=== PATIENT | female | born 1940 | race Caucasian/White ===

== ENCOUNTER 2016-11-30 08:01 | Outpatient (CLI) | payer OTHER ==
--- NOTE | 2016-11-30 11:15 | DIAGNOSTIC IMAGING REPORT ---
PROCEDURE: US KIDNEY/RENAL COMPLETE INDICATION: CYST OF KIDNEY TECHNIQUE: Mason scale and color Doppler sonographic imaging of the kidneys and urinary bladder was obtained. Intrarenal resistive indices were calculated when appropriate. COMPARISON: 02/28/2014 FINDINGS: The right kidney measures 9.2 x 5.2 x 3.5 cm. Slight cortical thinning but normal cortical echogenicity. There are two small cortical cysts in the kidney, one in the upper pole measuring 14 mm and the other in the mid pole measuring 9 mm. The echols are thin and avascular. No suspicious solid mass. Normal color Doppler blood flow throughout the kidney. Resistive indices in the intrarenal parenchymal arteries range from 0.62-0.68. The left kidney measures 9.3 x 4.3 x 4.5 cm. Slight cortical thinning but normal cortical echogenicity. No hydronephrosis, cyst, solid mass, or shadowing calculus. Normal color Doppler blood flow throughout the kidney. Resistive indices in the intrarenal parenchymal arteries range from 0.64-0.71 The filled urinary bladder has a volume of 33 ml. The patient could not void voluntarily. The urinary bladder wall is uniform in thickness without suspicious thickening or irregularity. No bladder debris, calcification or mass. Bilateral ureteral jets were visible indicating ureteral patency. IMPRESSION: 1. Two small simple cysts in the right renal cortex, developed since the prior ultrasound. Appearance is benign. 2. Normal urinary bladder morphology.
== END 2016-11-30 23:00 ==
LOC: US SRH 08:01
DX: N28.1 Cyst of kidney, acquired (principal)

== ENCOUNTER 2017-01-13 11:20 | Outpatient (CLI) | payer OTHER ==
--- NOTE | 2017-01-14 11:52 | DIAGNOSTIC IMAGING REPORT ---
PROCEDURE: MG BILATERAL SCREENING W/CAD INDICATION: SCREENING TECHNIQUE: Bilateral CC and MLO digital views. COMPARISON: Mammograms 01/13/2016, 10/02/2014 and 07/27/2013. FINDINGS: Computer-aided detection applied. Mildly dense pattern. Small focal asymmetry in the mid lateral aspect of the left breast seen only on the CC view. No pleomorphic microcalcifications. IMPRESSION: 1. Small focal asymmetry mid lateral aspect of the left breast seen only on the CC view, probably normal breast parenchyma. Recommend additional views and ultrasound for clarification. RESULT CODE: 0- Incomplete; needs additional evaluation. A. A negative report should not delay biopsy if a dominant or clinically suspicious mass is present. 10-15% of cancers are not identified by x-ray. B. A negative report may reinforce clinical impression. C. Adenosis and dense breasts may obscure an underlying neoplasm. D. False positive reports average 6-10%. E.. A yearly screening mammogram is recommended. A reminder letter will be scheduled.
== END 2017-01-13 23:00 ==
LOC: MAM SRH 11:20
DX: Z12.31 Encounter for screening mammogram for malignant neoplasm of breast (principal)

== ENCOUNTER 2017-01-20 14:15 | Outpatient (CLI) | payer OTHER ==
--- NOTE | 2017-01-20 15:43 | DIAGNOSTIC IMAGING REPORT ---
PROCEDURE: MG UNILATERAL DIAG-LT W/CAD INDICATION: ADDITIONAL VIEWS, density seen on screening, personal history of CLL. TECHNIQUE: Spot compression mammographic views of the left breast in the CC projection. A direct lateral left breast mammogram using CAD. Rolled views in the CC projection. The patient then went to ultrasound where morrison-scale and color Doppler sonographic imaging of the left breast was performed. COMPARISON: 01/13/2017, 01/13/2016, 10/02/2014 FINDINGS: Mammograms: With focal spot compression, the density seen in the lateral left breast on screening mammogram dissipates. There are minimally prominent Merrill' s ligaments in the region. No unusual area of architectural distortion or calcification. On rolled views, there is no persistent density. Nodular glandularity is present. There are benign vascular calcifications. Ultrasound: Normal tissue is present. No suspicious mass, cyst, or shadowing. No abnormal vascularity detected. IMPRESSION: 1. Focal asymmetry seen in the lateral left breast on screening mammography dissipates with additional views. Normal underlying tissue is present. No sonographic abnormalities. 2. The patient can resume yearly screening mammography. Findings and recommendations were discussed with the patient. RESULT CODE: 1- Negative. A. A negative report should not delay biopsy if a dominant or clinically suspicious mass is present. 10-15% of cancers are not identified by x-ray. B. A negative report may reinforce clinical impression. C. Adenosis and dense breasts may obscure an underlying neoplasm. D. False positive reports average 6-10%. E.. A yearly screening mammogram is recommended. A reminder letter will be scheduled.
== END 2017-01-20 23:00 ==
LOC: MAM SRH 14:15 → US SRH 15:00 → MAM SRH 23:00
DX: R92.8 Other abnormal and inconclusive findings on diagnostic imaging of breast (principal)